=== PATIENT | female | born 1985 | race Caucasian/White ===

== ENCOUNTER 2016-06-19 10:25 | Inpatient (IN) | payer OTHER ==
[2016-06-19] MEDS ORDERED: ACETAMINOPHEN 500 MG 500 MG TAB PO ONE (11:45)
[2016-06-19] MEDS ORDERED: ACETAMINOPHEN 325 MG PO PRN ×2 (12:22→12:43)
[2016-06-19] MEDS ORDERED: NIFEDIPINE 10 MG SGL PO SCH (12:30)
[2016-06-19] MEDS ORDERED: SODIUM CHLORIDE 0.9% FLUSH 10 ML SOL IV SCH (12:30)
[2016-06-19] MEDS: NIFEDIPINE 10 MG SGL PO SCH ×2 (13:09→21:21)
[2016-06-19] MEDS: SODIUM CHLORIDE 0.9% FLUSH 10 ML SOL IV SCH ×2 (15:19→21:12)
[2016-06-19] MEDS ORDERED: PATIENT EDUCATION 1 MISC PRN (15:33)
[2016-06-19] MEDS ORDERED: ACETAMINOPHEN 500 MG 500 MG TAB ONE (19:41)
[2016-06-19] MEDS: ACETAMINOPHEN 500 MG 500 MG TAB PO PRN (19:44)
[2016-06-20] MEDS ORDERED: ACETAMINOPHEN 500 MG 500 MG TAB ONE (00:51)
[2016-06-20] MEDS: ACETAMINOPHEN 500 MG 500 MG TAB PO PRN (00:53)
[2016-06-20] MEDS: NIFEDIPINE 10 MG SGL PO SCH (05:15)
[2016-06-20] MEDS: SODIUM CHLORIDE 0.9% FLUSH 10 ML SOL IV SCH (05:23)
[2016-06-20] MEDS ORDERED: TRAMADOL HYDROCHLORIDE 50 MG TAB PO PRN (05:42)
[2016-06-20] MEDS ORDERED: TRAMADOL HYDROCHLORIDE 50 MG TAB ONE (05:57)
[2016-06-20] MEDS ORDERED: MAGNESIUM SULFATE 5 GM/10 ML SOL IV PRN (06:43)
[2016-06-20] MEDS ORDERED: MAGNESIUM SULFATE IV PRN (06:43)
[2016-06-20] MEDS ORDERED: CALCIUM GLUCONATE 10% 100 MG/ML SOL IV PRN (06:43)
[2016-06-20 07:22] LABS: BASOPHILS % (AUTO) 1 % (0-3); EOSINOPHILS % (AUTO) 2 % (0-9); HEMATOCRIT 39 % (35-47); MEAN CORPUSCULAR HGB CONC 34.7 gm/dl (32.0-36.0); MONOCYTES % (AUTO) 6.7 % (0-12); NEUTROPHILS % (AUTO) 70.4 % (37-80)
[2016-06-20 07:35] LABS: ALBUMIN 2.6 gm/dl (3.4-5.0); CALCIUM 8.8 mg/dl (8.5-10.1); MAGNESIUM 1.5 mg/dl (1.8-2.4); POTASSIUM 3.4 mMol/L (3.5-5.1); URIC ACID 6.1 mg/dl (2.6-7.2)
[2016-06-20 08:41] VITALS: TEMP 97.8
[2016-06-20 08:42] VITALS: BP 158/102; PULSE 105; RESP 18; O2SAT 97
[2016-06-20 15:14] LABS: APPEARANCE,URINE Clear; BILIRUBIN,URINE NEGATIVE (NEGATIVE); COLOR,URINE Yellow; GLUCOSE, URINE (UA) NEGATIVE (NEGATIVE); KETONES,URINE 1+ (NEGATIVE); LEUKOCYTE ESTERASE ,URINE NEGATIVE (NEGATIVE); NITRATE,URINE NEGATIVE (NEGATIVE); OCCULT BLOOD,URINE NEGATIVE (NEG-TRACE); UROBILINOGEN,URINE 0.2 (0.2-1.0 EU)
[2016-06-20 15:22] LABS: RBC,URINE 0-2 (0-3AV/HPF); WBC,URINE 0-2 (0-5AV/HPF)
== END 2016-06-20 08:00 | disposition short-term general hospital (02) | DRG 781 ==
LOC: OBOP 10:25 → OB 10:25 → EDSTATUS 10:30
PROVIDERS: ADMIT Family Medicine; ATTEND Family Medicine
DX: O14.93 Unspecified pre-eclampsia, third trimester (principal); Z3A.37 37 weeks gestation of pregnancy
CPT/HCPCS: 59025; 59412; 80053; 81001; 83735; 84550; 85025; 87088; J0610

== ENCOUNTER 2018-06-21 16:52 | Observation (INO) | payer OTHER ==
[2018-06-21] MEDS: SODIUM CHLORIDE 0.9% 1000ML 1,000 ML IV SCH ×3 (18:00→20:38)
[2018-06-21 18:09] LABS: BASOPHILS % (AUTO) 0 % (0-3); EOSINOPHILS % (AUTO) 0 % (0-9); HEMATOCRIT 42 % (35-47); HEMOGLOBIN 13.6 gm/dl (12.0-15.5); LACTIC ACID 1.4 mMol/L (0.0-2.0); LYMPHOCYTES % (AUTO) 11.9 % (10-50); MEAN CORPUSCULAR HEMOGLOBIN 29.2 pg (27.0-32.0); MEAN CORPUSCULAR HGB CONC 32.7 gm/dl (32.0-36.0); MEAN CORPUSCULAR VOLUME 89 fL (81-99); MONOCYTES % (AUTO) 5.9 % (0-12); NEUTROPHILS % (AUTO) 81.3 % (37-80)
[2018-06-21 18:22] LABS: ALBUMIN 2.7 gm/dl (3.4-5.0); BILIRUBIN,TOTAL 0.4 mg/dl (0.2-1.0); CALCIUM 8.9 mg/dl (8.5-10.1); CARBON DIOXIDE 24.4 mEq/L (21-32); CREATININE 0.77 mg/dl (0.60-1.00); POTASSIUM 3.6 mMol/L (3.5-5.1)
[2018-06-21 18:29] LABS: APPEARANCE,URINE Cloudy; BILIRUBIN,URINE NEGATIVE (NEGATIVE); COLOR,URINE Yellow; GLUCOSE, URINE (UA) NEGATIVE (NEGATIVE); KETONES,URINE TRACE (NEGATIVE); LEUKOCYTE ESTERASE ,URINE NEGATIVE (NEGATIVE); NITRATE,URINE NEGATIVE (NEGATIVE); OCCULT BLOOD,URINE NEGATIVE (NEG-TRACE); PH,URINE 8.5
[2018-06-21 18:39] LABS: BACTERIA 2+ (< 1+); CRYSTALS 4+ (0-3 AVE/HPF); RBC,URINE NEGATIVE (0-3AV/HPF)
[2018-06-21] MEDS ORDERED: PANTOPRAZOLE SODIUM 40 MG/10 ML PDS IV ONE (18:44)
[2018-06-21] MEDS ORDERED: PANTOPRAZOLE SODIUM 40 MG/10 ML PDS ONE (18:45)
[2018-06-21] MEDS ORDERED: CALCIUM CARBONATE 500 MG TAB PO ONE (19:16)
[2018-06-21] MEDS ORDERED: CALCIUM CARBONATE 500 MG TAB ONE (19:18)
[2018-06-21] MEDS ORDERED: SODIUM CHLORIDE 0.9% FLUSH 10 ML SOL IV PRN (19:46)
[2018-06-21] MEDS ORDERED: CALCIUM CARBONATE 500 MG TAB PO PRN (20:07)
[2018-06-21] MEDS: ACETAMINOPHEN 325 MG PO PRN (20:25)
[2018-06-21] MEDS: SODIUM CHLORIDE 0.9% FLUSH 10 ML SOL IV SCH (20:25)
[2018-06-22] MEDS: ACETAMINOPHEN 325 MG PO PRN ×2 (03:43→08:21)
[2018-06-22] MEDS: SODIUM CHLORIDE 0.9% FLUSH 10 ML SOL IV SCH (03:45)
[2018-06-22 07:32] VITALS: RESP 20
[2018-06-22 07:56] LABS: APPEARANCE,URINE Clear; BILIRUBIN,URINE NEGATIVE (NEGATIVE); COLOR,URINE Yellow; GLUCOSE, URINE (UA) NEGATIVE (NEGATIVE); KETONES,URINE TRACE (NEGATIVE); LEUKOCYTE ESTERASE ,URINE NEGATIVE (NEGATIVE); NITRATE,URINE NEGATIVE (NEGATIVE); OCCULT BLOOD,URINE NEGATIVE (NEG-TRACE); PH,URINE 6.5; UROBILINOGEN,URINE 0.2 (0.2-1.0 EU)
[2018-06-22 07:58] LABS: ALBUMIN 2.2 gm/dl (3.4-5.0); BILIRUBIN,TOTAL 0.6 mg/dl (0.2-1.0); CALCIUM 8.7 mg/dl (8.5-10.1); CARBON DIOXIDE 22.2 mEq/L (21-32); CREATININE 0.96 mg/dl (0.60-1.00); POTASSIUM 3.5 mMol/L (3.5-5.1); TOTAL PROTEIN 6.2 gm/dl (6.4-8.2); URIC ACID 5.2 mg/dl (2.6-7.2)
[2018-06-22] MEDS ORDERED: PANTOPRAZOLE SODIUM 40 MG ECT PO ONE (08:18)
[2018-06-22] MEDS ORDERED: PANTOPRAZOLE SODIUM 40 MG ECT PO SCH (09:00)
[2018-06-22 11:03] VITALS: BP 132/85; PULSE 82; TEMP 98; O2SAT 93
== END 2018-06-22 10:35 | disposition home or self-care (01) | DRG 833 ==
LOC: ED 16:52 → UNDOADMOB 19:31 → OB 19:31
PROVIDERS: ADMIT Family Medicine; ATTEND Family Medicine
DX: O26.893 Other specified pregnancy related conditions, third trimester (principal); Z3A.36 36 weeks gestation of pregnancy; R10.9 Unspecified abdominal pain; K59.00 Constipation, unspecified; O16.3 Unspecified maternal hypertension, third trimester; E03.9 Hypothyroidism, unspecified
CPT/HCPCS: 36415; 59025; 80053; 81001; 81003; 84550; 85025; 87088; 87205; 96365; 96374; 99283; 99285; A9270-GY

== ENCOUNTER 2018-07-07 19:34 | Observation (INO) | payer OTHER ==
[2018-07-07 20:09] LABS: INR 0.91 (0.86-1.12)
[2018-07-07 20:15] LABS: BASOPHILS % (AUTO) 0 % (0-3); EOSINOPHILS % (AUTO) 0 % (0-9); HEMATOCRIT 46 % (35-47); HEMOGLOBIN 15.3 gm/dl (12.0-15.5); LYMPHOCYTES % (AUTO) 5.6 % (10-50); MEAN CORPUSCULAR HEMOGLOBIN 29.4 pg (27.0-32.0); MEAN CORPUSCULAR HGB CONC 33.1 gm/dl (32.0-36.0); MEAN CORPUSCULAR VOLUME 89 fL (81-99); MONOCYTES % (AUTO) 6.6 % (0-12)
[2018-07-07 20:17] LABS: ALBUMIN 2.8 gm/dl (3.4-5.0); BILIRUBIN,TOTAL 0.5 mg/dl (0.2-1.0); CALCIUM 8.4 mg/dl (8.5-10.1); POTASSIUM 3.3 mMol/L (3.5-5.1); TOTAL PROTEIN 6.7 gm/dl (6.4-8.2)
[2018-07-07 20:29] LABS: CARBON DIOXIDE 19.4 mEq/L (21-32); CREATININE 0.51 mg/dl (0.60-1.00)
[2018-07-07] MEDS ORDERED: SODIUM CHLORIDE 0.9% 1000ML 1,000 ML IV SCH (20:45)
[2018-07-07] MEDS: ONDANSETRON HCL 4 MG/2 ML SOL IV PRN (20:55)
[2018-07-07 22:42] LABS: APPEARANCE,URINE CLOUDY; COLOR,URINE DK YELLOW; GLUCOSE, URINE (UA) NEGATIVE (NEGATIVE); KETONES,URINE 3+ (NEGATIVE); OCCULT BLOOD,URINE NEGATIVE (NEG-TRACE)
[2018-07-07 22:43] LABS: BACTERIA UNABLE (< 1+); BILIRUBIN,URINE 1+ (NEGATIVE); CRYSTALS UNABLE (0-3 AVE/HPF); EPITHELIAL CELLS PACKED FIELDS (SQUAMOUS); LEUKOCYTE ESTERASE ,URINE TRACE (NEGATIVE); NITRATE,URINE NEGATIVE (NEGATIVE); RBC,URINE UNABLE (0-3AV/HPF); UROBILINOGEN,URINE 0.2 (0.2-1.0 EU); WBC,URINE UNABLE (0-5AV/HPF)
[2018-07-07 22:44] LABS: ICTOTEST,URINE NEGATIVE (NEGATIVE)
[2018-07-07] MEDS ORDERED: SODIUM CHLORIDE 0.9% 1000ML 1,000 ML IV ONE (23:11)
[2018-07-07] MEDS ORDERED: ALUMINUM/MAGNESIUM 30 ML SUS PO PRN (23:11)
[2018-07-08] MEDS ORDERED: DEXTROSE/SALINE 0.45/KCL 20MEQ 1,000 ML/1,000 ML SOL IV ONE ×2 (00:20→02:30)
[2018-07-08] MEDS: ONDANSETRON HCL 4 MG/2 ML SOL IV PRN (02:16)
[2018-07-08] MEDS ORDERED: LEVOTHYROXINE SODIUM 88 MCG PO SCH (07:00)
[2018-07-08] MEDS ORDERED: LEVOTHYROXINE SODIUM 50 MCG TAB PO SCH (07:00)
[2018-07-08] MEDS ORDERED: LEVOTHYROXINE SODIUM PO SCH (07:00)
[2018-07-08] MEDS ORDERED: Non-Formulary Medication MISC (Levothyroxine Sodium 88 Mcg 88 MCG) PO SCH (07:00)
[2018-07-08] MEDS ORDERED: LEVOTHYROXINE SODIUM 50 MCG TAB ONE (07:24)
[2018-07-08 07:37] LABS: APPEARANCE,URINE Slightly Cloudy; BILIRUBIN,URINE 1+ (NEGATIVE); COLOR,URINE Yellow; GLUCOSE, URINE (UA) NEGATIVE (NEGATIVE); KETONES,URINE 2+ (NEGATIVE); LEUKOCYTE ESTERASE ,URINE NEGATIVE (NEGATIVE); NITRATE,URINE NEGATIVE (NEGATIVE); OCCULT BLOOD,URINE NEGATIVE (NEG-TRACE); PH,URINE 6.5
[2018-07-08 08:06] LABS: BACTERIA NEGATIVE (< 1+); CRYSTALS NEGATIVE (0-3 AVE/HPF); ICTOTEST,URINE NEGATIVE (NEGATIVE); RBC,URINE 0-2 (0-3AV/HPF); WBC,URINE 0-3 (0-5AV/HPF)
[2018-07-08] MEDS ORDERED: PANTOPRAZOLE SODIUM 40 MG/10 ML PDS IV SCH (09:00)
[2018-07-10 08:09] LABS: *PROTEIN URINE RAW 10.9 mg/dL (1.0-14.0)
[2018-07-16] MEDS ORDERED: CEFAZOLIN SODIUM 1 GM PDS IV ONE (06:36)
[2018-07-16] MEDS ORDERED: LACTATED RINGERS 1,000 ML with OXYTOCIN 10000 MU/ML 20 MU IV ONE (07:07)
[2018-07-16 07:55] VITALS: RESP 16
[2018-07-16] MEDS ORDERED: KETOROLAC TROMETHAMINE 30 MG/ML SOL IV ONE (08:02)
[2018-07-16 08:19] VITALS: TEMP 99
[2018-07-16 08:23] VITALS: BP 142/85; PULSE 80; O2SAT 98
== END 2018-07-08 09:10 | disposition home or self-care (01) | DRG 392 ==
LOC: OB 19:34
PROVIDERS: ADMIT Emergency Medicine; ATTEND Emergency Medicine
DX: A08.4 Viral intestinal infection, unspecified (principal); R03.0 Elevated blood-pressure reading, without diagnosis of hypertension; Z3A.37 37 weeks gestation of pregnancy
CPT/HCPCS: 36415; 59025; 80053; 81001; 81050; 85025; 85610; 87088; J2405; A9270-GY

== ENCOUNTER 2018-07-16 04:26 | Inpatient (IN) | payer OTHER ==
[2018-07-16] MEDS ORDERED: CITRIC ACID/SODIUM CITRATE SOL PO SCH ×2 (04:30→05:35)
[2018-07-16] MEDS ORDERED: CEFAZOLIN SODIUM 1 GM PDS 2 GM in SODIUM CHLORIDE 0.9% 100 ML 100 ML IV ONE (04:30)
[2018-07-16] MEDS ORDERED: SODIUM CHLORIDE 0.9% 50 ML 25 ML IV PRN (04:30)
[2018-07-16] MEDS: LACTATED RINGERS 1,000 ML IV SCH ×5 (04:50→19:29)
[2018-07-16] MEDS: SODIUM CHLORIDE 0.9% FLUSH 10 ML SOL IV SCH ×3 (04:50→21:08)
[2018-07-16] MEDS ORDERED: SODIUM CHLORIDE 0.9% FLUSH 10 ML SOL IV PRN (05:31)
[2018-07-16] MEDS ORDERED: MORPHINE SULFATE 0.5 MG/ML SOL ONE (05:59)
[2018-07-16] MEDS ORDERED: EPHEDRINE SULFATE 50 MG/ML SOL ONE (06:00)
[2018-07-16] MEDS ORDERED: OXYTOCIN 10000 MU/ML SOL ONE ×3 (06:00→06:55)
[2018-07-16] MEDS ORDERED: CEFAZOLIN SODIUM 1 GM PDS ONE ×2 (06:10)
[2018-07-16 07:32] LABS: APPEARANCE,URINE Clear; BILIRUBIN,URINE NEGATIVE (NEGATIVE); COLOR,URINE Yellow; GLUCOSE, URINE (UA) NEGATIVE (NEGATIVE); KETONES,URINE NEGATIVE (NEGATIVE); LEUKOCYTE ESTERASE ,URINE NEGATIVE (NEGATIVE); NITRATE,URINE NEGATIVE (NEGATIVE); OCCULT BLOOD,URINE NEGATIVE (NEG-TRACE); PH,URINE 6.5; UROBILINOGEN,URINE 0.2 (0.2-1.0 EU)
[2018-07-16 07:44] LABS: BACTERIA 1+ (< 1+); CRYSTALS 5-8 CA OXALATE (0-3 AVE/HPF); RBC,URINE 0-2 (0-3AV/HPF)
[2018-07-16] MEDS ORDERED: KETOROLAC TROMETHAMINE 30 MG/ML SOL ONE (08:00)
[2018-07-16] MEDS ORDERED: BISACODYL 10 MG SUP PR PRN (09:37)
[2018-07-16] MEDS ORDERED: METHYLERGONOVINE MALEATE 0.2 MG TAB PO PRN (09:37)
[2018-07-16] MEDS ORDERED: FLEET ENEMA PR PRN (09:37)
[2018-07-16] MEDS ORDERED: BENZOCAINE/MENTHOL 1 SPR TOP PRN (09:37)
[2018-07-16] MEDS ORDERED: WITCH HAZEL 1 EA PAD TOP PRN (09:37)
[2018-07-16] MEDS ORDERED: DIPHENHYDRAMINE 25 MG CAP PO PRN (09:37)
[2018-07-16] MEDS ORDERED: ONDANSETRON HCL 4 MG/2 ML SOL IV PRN (09:37)
[2018-07-16] MEDS ORDERED: TEMAZEPAM 15MG 15 MG CAP PO PRN (09:37)
[2018-07-16] MEDS: APAP/HYDROCODONE 1 EACH TABLET PO PRN ×2 (12:13→21:31)
[2018-07-16] MEDS: KETOROLAC TROMETHAMINE 30 MG/ML SOL IV PRN (17:10)
[2018-07-16] MEDS ORDERED: LACTATED RINGERS 500 ML IV SCH (18:15)
[2018-07-16] MEDS: DOCUSATE SODIUM 100 MG SGL PO SCH (21:31)
[2018-07-17] MEDS: KETOROLAC TROMETHAMINE 30 MG/ML SOL IV PRN (01:07)
[2018-07-17] MEDS: LACTATED RINGERS 1,000 ML IV SCH (02:20)
[2018-07-17] MEDS: APAP/HYDROCODONE 1 EACH TABLET PO PRN ×5 (02:20→23:18)
[2018-07-17] MEDS: SODIUM CHLORIDE 0.9% FLUSH 10 ML SOL IV SCH ×2 (07:21→15:08)
[2018-07-17] MEDS: IBUPROFEN 600 MG TAB PO PRN ×2 (07:25→23:18)
[2018-07-17] MEDS ORDERED: LEVOTHYROXINE SODIUM 50 MCG TAB ONE (07:25)
[2018-07-17] MEDS: LEVOTHYROXINE SODIUM 50 MCG TAB PO SCH (07:27)
[2018-07-17] MEDS: FOLIC ACID 1 MG TAB PO SCH (08:18)
[2018-07-17] MEDS: DOCUSATE SODIUM 100 MG SGL PO SCH ×3 (08:18→20:31)
[2018-07-17] MEDS: MULTIVITAMIN2 1 EA TAB PO SCH (08:18)
[2018-07-17] MEDS ORDERED: LEVOTHYROXINE SODIUM 50 MCG TAB PO SCH (09:00)
[2018-07-18] MEDS ORDERED: LEVOTHYROXINE SODIUM 50 MCG TAB ONE (05:20)
[2018-07-18] MEDS: LEVOTHYROXINE SODIUM 50 MCG TAB PO SCH (07:36)
[2018-07-18] MEDS: IBUPROFEN 600 MG TAB PO PRN ×2 (07:37→14:02)
[2018-07-18] MEDS: DOCUSATE SODIUM 100 MG SGL PO SCH ×2 (08:46→20:19)
[2018-07-18] MEDS: MULTIVITAMIN2 1 EA TAB PO SCH (08:46)
[2018-07-18] MEDS: FOLIC ACID 1 MG TAB PO SCH (08:46)
[2018-07-18] MEDS: APAP/HYDROCODONE 1 EACH TABLET PO PRN (22:11)
[2018-07-19] MEDS: IBUPROFEN 600 MG TAB PO PRN (03:06)
[2018-07-19] MEDS: APAP/HYDROCODONE 1 EACH TABLET PO PRN (03:06)
[2018-07-19 03:13] VITALS: BP 137/88; PULSE 79; RESP 18; O2SAT 94
[2018-07-19] MEDS ORDERED: LEVOTHYROXINE SODIUM 50 MCG TAB ONE (06:40)
[2018-07-19] MEDS: LEVOTHYROXINE SODIUM 50 MCG TAB PO SCH (06:42)
[2018-07-19 07:59] LABS: *HIV 1/2 AB/AG COMBO Nonreactive (Nonreactive)
[2018-07-19] MEDS: DOCUSATE SODIUM 100 MG SGL PO SCH (08:28)
[2018-07-19] MEDS: MULTIVITAMIN2 1 EA TAB PO SCH (08:28)
[2018-07-19] MEDS: FOLIC ACID 1 MG TAB PO SCH (08:28)
[2018-07-19] MEDS ORDERED: FENTANYL 250 MCG/ 5ML SOL ONE (09:14)
[2018-07-19] MEDS ORDERED: LIDOCAINE HCL 2% MPF 10 ML SOL ONE (09:14)
[2018-07-19 10:43] VITALS: TEMP 98.2
[2018-07-19 15:13] LABS: *TREPONEMA AB SYPHILIS AB SEE SCAN REPORT
== END 2018-07-19 10:35 | disposition home or self-care (01) | DRG 788 ==
LOC: OB 04:26
PROVIDERS: ADMIT Family Medicine; ATTEND Family Medicine
PROC: 10D00Z1 Extraction of Products of Conception, Low, Open Approach (ICD-10-PCS; principal; 2018-07-16 06:00)
DX: O82 Encounter for cesarean delivery without indication (principal); Z3A.39 39 weeks gestation of pregnancy; Z37.0 Single live birth
CPT/HCPCS: 36415; 59025; 81001; 85018; J0690; J1885; J2274; J2590; J3010; A9270-GY; J3490